=== PATIENT | male | born 1945 | race Caucasian/White ===

== ENCOUNTER 2017-02-18 12:52 | Inpatient (IN) | payer MEDICARE ==
[~2017-02-18] VITALS: Ht 190.5 cm; Wt 95.3 kg
[~2017-02-18 12:52] MED LIST: ACET-1757 PO; ALBU18HF INH; ALLO300T PO; CEFD300C37 PO; CEFU500T50 PO; DILT120C75 PO; DILT240C77 PO; DOXY100T PO; DOXY100T10 PO; FLUT1DIS3 INH; FLUT1DIS5 IH; FURO40TA6 PO; GUAI600T31 PO; IPRA3AMP NPPB; LEVO500T47 PO; LEVO750T26 PO; MONT10TA9 PO; POTA10TA11 PO; PRED20TA PO; PRED5TAB PO; TAMS0.4C2 PO; TIOT18CA INH
[2017-02-18] MEDS ORDERED: SODIUM CHLORIDE 0.9% 1,000ML IVBOLUS ONE ×3 (13:00→15:30)
[2017-02-18] MEDS ORDERED: ACETAMINOPHEN 500 MG TABLET PO ONE (13:00)
[2017-02-18] MEDS ORDERED: SODIUM CHLORIDE FLUSH 10ML SYR IVF ONE (13:00)
[2017-02-18] MEDS ORDERED: MAGNESIUM SULFATE 1 GM/2 ML IVPush ONE (13:00)
[2017-02-18] MEDS ORDERED: FLUT1DIS5 IH (13:19)
[2017-02-18] MEDS ORDERED: TIOT4MIS5 INH (13:22)
[2017-02-18] MEDS ORDERED: ALBUTEROL/IPRATROPIUM 2.5MG/0.5MG, 3 ML ONE ×2 (13:25→13:37)
[2017-02-18] MEDS ORDERED: MAGNESIUM SULFATE PMX 2GM/50ML 50 ML IV ONE (13:30)
[2017-02-18 13:37] LABS: HEMATOCRIT 42.9 % (39.2-51.8); HEMOGLOBIN 14.4 g/dL (13.7-18.0); WHITE BLOOD COUNT 21.7 x10^3/uL (3.4-10)
[2017-02-18 13:50] LABS: ASPARTATE AMINO TRANSFERASE 10 U/L (15-37); BLOOD UREA NITROGEN 12 mg/dL (7-18)
[2017-02-18 13:56] LABS: IS PT STATUS REG ER OR PRE ER? YES
[2017-02-18 13:57] LABS: DIFF TOTAL CELLS COUNTED 100 CELL DIFF
[2017-02-18 14:01] LABS: ANISOCYTOSIS 1+
[2017-02-18 14:02] LABS: VERIFY COUNTS? YES
[2017-02-18 14:17] LABS: RAPID INFLUENZA A Negative (Negative); RAPID INFLUENZA B Negative (Negative)
[2017-02-18] MEDS ORDERED: PIPERACILLIN/TAZO/PMX 3.375GM 50 ML ONE (15:29)
[2017-02-18] MEDS ORDERED: VANCOMYCIN PER PHARMACY MC ONE (15:30)
[2017-02-18] MEDS ORDERED: VANCOMYCIN 1,700 MG in SODIUM CHLORIDE 0.9% 250 ML IV ONE (15:30)
[2017-02-18] MEDS ORDERED: PIPERACILLIN/TAZO/PMX 3.375GM 50 ML IVPB ONE (15:30)
[2017-02-18] MEDS ORDERED: SODIUM CHLORIDE FLUSH 10ML SYR IVF PRN (16:00)
[2017-02-18] MEDS ORDERED: NS + 20MEQ KCL 1,000 ML IV SCH ×2 (16:05→21:00)
[2017-02-18] MEDS: methylPREDNISolone SOD SUCC 125 MG/2 ML IVPush SCH ×2 (16:30→21:48)
[2017-02-18] MEDS ORDERED: LABETALOL 5MG/ML, 20ML IVPush PRN (16:30)
[2017-02-18] MEDS ORDERED: ENALAPRILAT 1.25 MG/ML, 2ML IVPush PRN (16:30)
[2017-02-18] MEDS ORDERED: ACETAMINOPHEN 325 MG TABLET PO PRN (16:30)
[2017-02-18] MEDS ORDERED: HYDROcodone/APAP 5/325 TABLET PO PRN (16:30)
[2017-02-18] MEDS ORDERED: VANCOMYCIN PER PHARMACY MC PRN (17:30)
[2017-02-18] MEDS ORDERED: TEMPLATE NON-FORMULARY MED. (Albuterol Sulfate (Ventolin Hfa) 2 PUFF(S)) INH PRN (17:30)
[2017-02-18] MEDS: ALBUTEROL/IPRATROPIUM 2.5MG/0.5MG, 3 ML NPPB SCH ×2 (17:30→21:30)
[2017-02-18 19:23] VITALS: BP 107/71
[2017-02-18] MEDS: GUAIFENESIN ER 600 MG TABLET PO SCH (21:49)
[2017-02-18] MEDS: TAMSULOSIN 0.4 MG CAP.ER.24H PO SCH (21:49)
[2017-02-18] MEDS: MONTELUKAST 10 MG TABLET PO SCH (21:49)
[2017-02-18] MEDS: PIPERACILLIN/TAZO/PMX 4.5GM 100 ML IV SCH (21:50)
[2017-02-18] MEDS: HEPARIN 5,000 UNITS/ML, 1ML SQ SCH (21:50)
[2017-02-19 01:02] VITALS: BP 126/72
[2017-02-19] MEDS: ALBUTEROL/IPRATROPIUM 2.5MG/0.5MG, 3 ML NPPB SCH ×5 (01:30→15:35)
[2017-02-19] MEDS: methylPREDNISolone SOD SUCC 125 MG/2 ML IVPush SCH ×4 (03:45→23:31)
[2017-02-19] MEDS: PIPERACILLIN/TAZO/PMX 4.5GM 100 ML IV SCH ×4 (03:45→23:31)
[2017-02-19 03:53] VITALS: BP 126/77
[2017-02-19 05:54] LABS: HEMOGLOBIN 13.1 g/dL (13.7-18.0); WHITE BLOOD COUNT 18.1 x10^3/uL (3.4-10)
[2017-02-19] MEDS: HEPARIN 5,000 UNITS/ML, 1ML SQ SCH ×3 (05:56→23:31)
[2017-02-19 06:07] LABS: BLOOD UREA NITROGEN 11 mg/dL (7-18)
[2017-02-19 07:52] VITALS: BP 128/72
[2017-02-19] MEDS: ALLOPURINOL 300 MG TABLET PO SCH (09:00)
[2017-02-19] MEDS: GUAIFENESIN ER 600 MG TABLET PO SCH ×2 (10:06→20:13)
[2017-02-19] MEDS: DILTIAZEM 120 MG CAP.ER.24H PO SCH (10:06)
[2017-02-19] MEDS: VANCOMYCIN 1,700 MG in SODIUM CHLORIDE 0.9% 250 ML IV SCH (14:08)
[2017-02-19 15:37] VITALS: BP 97/58
[2017-02-19] MEDS ORDERED: NS + 20MEQ KCL 1,000 ML IV SCH (16:05)
[2017-02-19] MEDS: DOCUSATE 100 MG CAPSULE PO PRN (17:47)
[2017-02-19] MEDS ORDERED: ALBUTEROL/IPRATROPIUM 2.5MG/0.5MG, 3 ML NPPB SCH (19:00)
[2017-02-19 19:23] VITALS: BP 121/76
[2017-02-19] MEDS: TAMSULOSIN 0.4 MG CAP.ER.24H PO SCH (20:13)
[2017-02-19] MEDS: MONTELUKAST 10 MG TABLET PO SCH (20:13)
[2017-02-20 01:09] VITALS: BP 114/67
[2017-02-20 05:32] LABS: HEMATOCRIT 36.3 % (39.2-51.8); HEMOGLOBIN 12.1 g/dL (13.7-18.0); WHITE BLOOD COUNT 19.2 x10^3/uL (3.4-10)
[2017-02-20 05:42] LABS: BLOOD UREA NITROGEN 15 mg/dL (7-18)
[2017-02-20] MEDS: DOCUSATE 100 MG CAPSULE PO PRN (05:52)
[2017-02-20] MEDS: PIPERACILLIN/TAZO/PMX 4.5GM 100 ML IV SCH ×2 (05:52→11:17)
[2017-02-20 06:39] VITALS: BP 137/79
[2017-02-20] MEDS: ALBUTEROL/IPRATROPIUM 2.5MG/0.5MG, 3 ML NPPB SCH ×4 (07:37→20:00)
[2017-02-20] MEDS: ALLOPURINOL 300 MG TABLET PO SCH (09:00)
[2017-02-20] MEDS: HEPARIN 5,000 UNITS/ML, 1ML SQ SCH ×2 (11:17→18:03)
[2017-02-20] MEDS: GUAIFENESIN ER 600 MG TABLET PO SCH ×2 (11:17→20:28)
[2017-02-20] MEDS: DILTIAZEM 120 MG CAP.ER.24H PO SCH (11:17)
[2017-02-20 12:57] VITALS: BP 116/70
[2017-02-20] MEDS: methylPREDNISolone SOD SUCC 125 MG/2 ML IVPush SCH ×2 (13:20→20:28)
[2017-02-20] MEDS: VANCOMYCIN 1,700 MG in SODIUM CHLORIDE 0.9% 250 ML IV SCH (15:17)
[2017-02-20] MEDS: PIPERACILLIN/TAZO 4.5 GM in DEXTROSE 5% 100 ML IV SCH (18:03)
[2017-02-20] MEDS ORDERED: DOCUSATE 100 MG CAPSULE PO PRN (19:00)
[2017-02-20] MEDS ORDERED: ACETAMINOPHEN 325 MG TABLET PO PRN (19:00)
[2017-02-20 20:12] VITALS: BP 115/67
[2017-02-20] MEDS: TAMSULOSIN 0.4 MG CAP.ER.24H PO SCH (20:28)
[2017-02-20] MEDS: MONTELUKAST 10 MG TABLET PO SCH (20:28)
[2017-02-21] MEDS: HEPARIN 5,000 UNITS/ML, 1ML SQ SCH (00:08)
[2017-02-21] MEDS: PIPERACILLIN/TAZO 4.5 GM in DEXTROSE 5% 100 ML IV SCH ×4 (00:08→20:39)
[2017-02-21 02:00] VITALS: BP 136/76
[2017-02-21] MEDS ORDERED: OXYMETAZOLINE NASAL SPRAY 0.05%, 15ML NAS ONE (04:00)
[2017-02-21] MEDS ORDERED: SODIUM CHLORIDE 0.9% 500 ML IV ONE ×3 (04:15→09:00)
[2017-02-21 04:36] LABS: HEMATOCRIT 35.7 % (39.2-51.8); HEMOGLOBIN 11.9 g/dL (13.7-18.0); WHITE BLOOD COUNT 19.8 x10^3/uL (3.4-10)
[2017-02-21 04:45] LABS: ASPARTATE AMINO TRANSFERASE 22 U/L (15-37); BLOOD UREA NITROGEN 19 mg/dL (7-18)
[2017-02-21] MEDS: methylPREDNISolone SOD SUCC 125 MG/2 ML IVPush SCH ×3 (04:49→20:39)
[2017-02-21] MEDS ORDERED: LIDOCAINE/PF 1%-EPI 1:200K, 30 ML INFIL ONE (05:00)
[2017-02-21] MEDS ORDERED: LIDOCAINE 1%-EPI 1:100K, 20ML INFIL ONE (05:00)
[2017-02-21] MEDS ORDERED: SODIUM CHLORIDE 0.9%, 500ML IVBOLUS ONE (05:00)
[2017-02-21] MEDS ORDERED: LIDOCAINE 0.5%-EPI 1:200K, 50ML INFIL ONE (05:00)
[2017-02-21 06:18] LABS: HEMATOCRIT 30.6 % (39.2-51.8); HEMOGLOBIN 10.2 g/dL (13.7-18.0)
[2017-02-21 06:45] VITALS: BP 92/60
[2017-02-21] MEDS: ALBUTEROL/IPRATROPIUM 2.5MG/0.5MG, 3 ML NPPB SCH ×4 (07:16→19:14)
[2017-02-21 08:10] VITALS: BP 92/56
[2017-02-21] MEDS: DILTIAZEM 120 MG CAP.ER.24H PO SCH (08:18)
[2017-02-21] MEDS: ALLOPURINOL 300 MG TABLET PO SCH (09:00)
[2017-02-21] MEDS: GUAIFENESIN ER 600 MG TABLET PO SCH ×2 (09:00→20:39)
[2017-02-21] MEDS ORDERED: SODIUM CHLORIDE 0.9% 1,000ML IV ONE (09:00)
[2017-02-21 10:28] LABS: HEMATOCRIT 28.9 % (39.2-51.8); HEMOGLOBIN 9.6 g/dL (13.7-18.0)
[2017-02-21 11:24] VITALS: BP 107/65
[2017-02-21 14:42] VITALS: BP 113/70
[2017-02-21] MEDS: OXYMETAZOLINE NASAL SPRAY 0.05%, 15ML NAS PRN (15:30)
[2017-02-21] MEDS: VANCOMYCIN 1,700 MG in SODIUM CHLORIDE 0.9% 250 ML IV SCH (15:31)
[2017-02-21 19:06] VITALS: BP 107/68
[2017-02-21 19:18] LABS: HEMATOCRIT 28.6 % (39.2-51.8); HEMOGLOBIN 9.5 g/dL (13.7-18.0)
[2017-02-21] MEDS ORDERED: ENALAPRILAT 1.25 MG/ML, 2ML IVPush PRN (19:30)
[2017-02-21] MEDS ORDERED: DOCUSATE 100 MG CAPSULE PO PRN (19:30)
[2017-02-21] MEDS ORDERED: ACETAMINOPHEN 325 MG TABLET PO PRN (19:30)
[2017-02-21] MEDS ORDERED: LABETALOL 5MG/ML, 20ML IVPush PRN (19:30)
[2017-02-21] MEDS: TAMSULOSIN 0.4 MG CAP.ER.24H PO SCH (20:39)
[2017-02-21] MEDS: MONTELUKAST 10 MG TABLET PO SCH (20:39)
[2017-02-22] MEDS: PIPERACILLIN/TAZO/PMX 4.5GM 100 ML IV SCH ×4 (01:32→18:30)
[2017-02-22 01:36] VITALS: BP 121/63
[2017-02-22] MEDS: methylPREDNISolone SOD SUCC 125 MG/2 ML IVPush SCH (05:41)
[2017-02-22 05:43] LABS: BLOOD UREA NITROGEN 29 mg/dL (7-18)
[2017-02-22 05:58] LABS: HEMATOCRIT 26.5 % (39.2-51.8); WHITE BLOOD COUNT 15.9 x10^3/uL (3.4-10)
[2017-02-22 06:25] LABS: DIFF TOTAL CELLS COUNTED 100 CELL DIFF
[2017-02-22 06:32] LABS: ANISOCYTOSIS 1+; HYPOCHROMIA 1+; POLYCHROMASIA 1+
[2017-02-22 06:38] LABS: VERIFY COUNTS? YES
[2017-02-22] MEDS: ALBUTEROL/IPRATROPIUM 2.5MG/0.5MG, 3 ML NPPB SCH ×4 (06:51→19:56)
[2017-02-22] MEDS: GUAIFENESIN ER 600 MG TABLET PO SCH ×2 (08:49→21:19)
[2017-02-22] MEDS: DILTIAZEM 120 MG CAP.ER.24H PO SCH (08:49)
[2017-02-22] MEDS: ALLOPURINOL 300 MG TABLET PO SCH (08:49)
[2017-02-22] MEDS: OXYMETAZOLINE NASAL SPRAY 0.05%, 15ML NAS PRN ×2 (08:57→11:18)
[2017-02-22 09:22] VITALS: BP 111/67
[2017-02-22 11:25] VITALS: BP 111/64
[2017-02-22 14:54] VITALS: BP 103/64
[2017-02-22 21:15] VITALS: BP 130/73
[2017-02-22] MEDS: TAMSULOSIN 0.4 MG CAP.ER.24H PO SCH (21:19)
[2017-02-22] MEDS: MONTELUKAST 10 MG TABLET PO SCH (21:19)
[2017-02-23] MEDS: PIPERACILLIN/TAZO/PMX 4.5GM 100 ML IV SCH ×4 (01:08→18:14)
[2017-02-23 01:16] VITALS: BP 106/69
[2017-02-23] MEDS: OXYMETAZOLINE NASAL SPRAY 0.05%, 15ML NAS PRN (03:00)
[2017-02-23 06:00] LABS: HEMATOCRIT 25.3 % (39.2-51.8); HEMOGLOBIN 8.6 g/dL (13.7-18.0); WHITE BLOOD COUNT 18.6 x10^3/uL (3.4-10)
[2017-02-23 06:22] LABS: DIFF TOTAL CELLS COUNTED 100 CELL DIFF
[2017-02-23 06:24] LABS: ANISOCYTOSIS 1+; POLYCHROMASIA 1+; VERIFY COUNTS? YES
[2017-02-23 06:26] LABS: ASPARTATE AMINO TRANSFERASE 11 U/L (15-37); BLOOD UREA NITROGEN 26 mg/dL (7-18); C-REACTIVE PROTEIN, QUANT 0.43 mg/dL (0.02-0.49)
[2017-02-23 06:35] VITALS: BP 137/63
[2017-02-23] MEDS: ALBUTEROL/IPRATROPIUM 2.5MG/0.5MG, 3 ML NPPB SCH ×4 (06:47→19:19)
[2017-02-23] MEDS: ALLOPURINOL 300 MG TABLET PO SCH (08:17)
[2017-02-23] MEDS: GUAIFENESIN ER 600 MG TABLET PO SCH ×2 (08:18→20:18)
[2017-02-23] MEDS: DILTIAZEM 120 MG CAP.ER.24H PO SCH (08:18)
[2017-02-23 13:05] VITALS: BP 89/50
[2017-02-23] MEDS ORDERED: SODIUM CHLORIDE 0.9%, 500ML IVBOLUS ONE (15:30)
[2017-02-23 16:50] VITALS: BP 113/70
[2017-02-23] MEDS: MONTELUKAST 10 MG TABLET PO SCH (20:18)
[2017-02-23] MEDS: TAMSULOSIN 0.4 MG CAP.ER.24H PO SCH (20:18)
[2017-02-23 20:33] VITALS: BP 123/66
[2017-02-24] VITALS (8 sets, daily range): BP systolic 106–144; BP diastolic 50–85
[2017-02-24] MEDS: PIPERACILLIN/TAZO/PMX 4.5GM 100 ML IV SCH ×4 (02:24→22:02)
[2017-02-24 05:47] LABS: HEMATOCRIT 27.4 % (39.2-51.8); HEMOGLOBIN 9.1 g/dL (13.7-18.0); WHITE BLOOD COUNT 19.9 x10^3/uL (3.4-10)
[2017-02-24 05:56] LABS: BLOOD UREA NITROGEN 20 mg/dL (7-18)
[2017-02-24 06:04] LABS: DIFF TOTAL CELLS COUNTED 100 CELL DIFF
[2017-02-24 06:06] LABS: ANISOCYTOSIS 1+; POLYCHROMASIA 1+; VERIFY COUNTS? YES
[2017-02-24] MEDS ORDERED: FERROUS SULFATE 325 MG TABLET PO SCH (08:00)
[2017-02-24] MEDS: ALBUTEROL/IPRATROPIUM 2.5MG/0.5MG, 3 ML NPPB SCH ×4 (08:05→19:42)
[2017-02-24] MEDS: FERROUS SULFATE 325 MG TABLET PO SCH ×2 (08:40→17:35)
[2017-02-24] MEDS: ALLOPURINOL 300 MG TABLET PO SCH (08:40)
[2017-02-24] MEDS: DILTIAZEM 120 MG CAP.ER.24H PO SCH (08:40)
[2017-02-24] MEDS: GUAIFENESIN ER 600 MG TABLET PO SCH ×2 (08:40→22:02)
[2017-02-24 21:06] LABS: ADENOVIRUS PCR Negative (Negative); INFLUENZA A PCR Negative (Negative); INFLUENZA B PCR Negative (Negative); METAPNEUMOVIRUS PCR Negative (Negative); PARAINFLUENZA 1 PCR Negative (Negative); PARAINFLUENZA 2 PCR Negative (Negative); PARAINFLUENZA 3 PCR Negative (Negative); RESP SYNCYTIAL VIRUS A PCR Negative (Negative); RESP SYNCYTIAL VIRUS B PCR Negative (Negative); RHINOVIRUS PCR Negative (Negative)
[2017-02-24] MEDS: MONTELUKAST 10 MG TABLET PO SCH (22:02)
[2017-02-24] MEDS: TAMSULOSIN 0.4 MG CAP.ER.24H PO SCH (22:02)
[2017-02-25 00:54] VITALS: BP 111/65
[2017-02-25] MEDS: PIPERACILLIN/TAZO/PMX 4.5GM 100 ML IV SCH ×4 (04:29→21:53)
[2017-02-25 07:43] VITALS: BP 125/61
[2017-02-25] MEDS: ALBUTEROL/IPRATROPIUM 2.5MG/0.5MG, 3 ML NPPB SCH ×4 (08:30→20:00)
[2017-02-25] MEDS: ALLOPURINOL 300 MG TABLET PO SCH (09:14)
[2017-02-25] MEDS: FERROUS SULFATE 325 MG TABLET PO SCH ×2 (09:15→17:31)
[2017-02-25] MEDS: DILTIAZEM 120 MG CAP.ER.24H PO SCH (09:15)
[2017-02-25] MEDS: GUAIFENESIN ER 600 MG TABLET PO SCH ×2 (09:15→21:52)
[2017-02-25 13:59] VITALS: BP 112/63
[2017-02-25 19:59] VITALS: BP 108/58
[2017-02-25] MEDS: TAMSULOSIN 0.4 MG CAP.ER.24H PO SCH (21:52)
[2017-02-25] MEDS: MONTELUKAST 10 MG TABLET PO SCH (21:52)
[2017-02-26 01:35] VITALS: BP 108/68
[2017-02-26] MEDS: PIPERACILLIN/TAZO/PMX 4.5GM 100 ML IV SCH ×4 (04:01→22:44)
[2017-02-26] MEDS: ALBUTEROL/IPRATROPIUM 2.5MG/0.5MG, 3 ML NPPB SCH ×4 (07:10→19:15)
[2017-02-26] MEDS: DILTIAZEM 120 MG CAP.ER.24H PO SCH (08:14)
[2017-02-26] MEDS: ALLOPURINOL 300 MG TABLET PO SCH (08:14)
[2017-02-26] MEDS: GUAIFENESIN ER 600 MG TABLET PO SCH ×2 (08:14→20:24)
[2017-02-26] MEDS: FERROUS SULFATE 325 MG TABLET PO SCH ×2 (08:15→16:11)
[2017-02-26 09:02] VITALS: BP 118/63
[2017-02-26 14:51] VITALS: BP 131/66
[2017-02-26 20:00] VITALS: BP 129/62
[2017-02-26] MEDS: TAMSULOSIN 0.4 MG CAP.ER.24H PO SCH (20:24)
[2017-02-26] MEDS: MONTELUKAST 10 MG TABLET PO SCH (20:24)
[2017-02-27 00:47] VITALS: BP 136/66
[2017-02-27] MEDS: PIPERACILLIN/TAZO/PMX 4.5GM 100 ML IV SCH ×3 (04:22→16:36)
[2017-02-27] MEDS: ALBUTEROL/IPRATROPIUM 2.5MG/0.5MG, 3 ML NPPB SCH ×4 (07:09→20:20)
[2017-02-27 07:59] VITALS: BP 130/66
[2017-02-27] MEDS: GUAIFENESIN ER 600 MG TABLET PO SCH ×2 (09:44→20:48)
[2017-02-27] MEDS: FERROUS SULFATE 325 MG TABLET PO SCH ×2 (09:44→17:37)
[2017-02-27] MEDS: ALLOPURINOL 300 MG TABLET PO SCH (09:45)
[2017-02-27] MEDS: DILTIAZEM 120 MG CAP.ER.24H PO SCH (09:45)
[2017-02-27 13:59] VITALS: BP 119/90
[2017-02-27 19:48] VITALS: BP 101/60
[2017-02-27] MEDS: MONTELUKAST 10 MG TABLET PO SCH (20:47)
[2017-02-27] MEDS: AMOXICILLIN/CLAV 500-125MG TABLET PO SCH (20:47)
[2017-02-27] MEDS: LINEZOLID 600 MG TABLET PO SCH (20:47)
[2017-02-27] MEDS: TAMSULOSIN 0.4 MG CAP.ER.24H PO SCH (20:47)
[2017-02-28 01:12] VITALS: BP 130/62
[2017-02-28] MEDS: AMOXICILLIN/CLAV 500-125MG TABLET PO SCH ×2 (04:21→11:37)
[2017-02-28] MEDS: ALBUTEROL/IPRATROPIUM 2.5MG/0.5MG, 3 ML NPPB SCH ×2 (07:40→11:57)
[2017-02-28 07:41] VITALS: BP 146/73
[2017-02-28] MEDS: ALLOPURINOL 300 MG TABLET PO SCH (08:58)
[2017-02-28] MEDS: FERROUS SULFATE 325 MG TABLET PO SCH (08:58)
[2017-02-28] MEDS: LINEZOLID 600 MG TABLET PO SCH (08:58)
[2017-02-28] MEDS: DILTIAZEM 120 MG CAP.ER.24H PO SCH (08:58)
[2017-02-28] MEDS: GUAIFENESIN ER 600 MG TABLET PO SCH (08:58)
[2017-02-28 12:06] VITALS: BP 120/74
[2017-02-28] MEDS ORDERED: LINE600T7 PO (13:50)
[2017-02-28] MEDS ORDERED: PRED20TA PO (13:50)
[2017-02-28] MEDS ORDERED: AMOX1TAB61 PO (13:50)
== END 2017-02-28 16:27 | disposition home or self-care (01) | DRG 871 ==
LOC: ED 13:43 → EDIP 15:40 → 4EST 17:43
PROVIDERS: ADMIT Family Medicine; ATTEND Family Medicine
DX: A41.9 Sepsis, unspecified organism (principal); J15.211 Pneumonia due to Methicillin susceptible Staphylococcus aureus; I27.29 Other secondary pulmonary hypertension; D62 Acute posthemorrhagic anemia; I27.81 Cor pulmonale (chronic); I07.1 Rheumatic tricuspid insufficiency; J44.0 Chronic obstructive pulmonary disease with (acute) lower respiratory infection; J44.1 Chronic obstructive pulmonary disease with (acute) exacerbation; R04.2 Hemoptysis; M10.9 Gout, unspecified; N40.0 Benign prostatic hyperplasia without lower urinary tract symptoms; R65.20 Severe sepsis without septic shock; Y95 Nosocomial condition; R09.02 Hypoxemia; I10 Essential (primary) hypertension; R06.89 Other abnormalities of breathing; R04.0 Epistaxis; Z66 Do not resuscitate; Z51.5 Encounter for palliative care; Z82.49 Family history of ischemic heart disease and other diseases of the circulatory system; Z86.14 Personal history of Methicillin resistant Staphylococcus aureus infection; Z87.01 Personal history of pneumonia (recurrent); Z87.891 Personal history of nicotine dependence; Z99.81 Dependence on supplemental oxygen; Z88.5 Allergy status to narcotic agent
CPT/HCPCS: 36415; 71010; 71020; 74230; 80048; 80053; 80202; 83605; 84145; 84484; 85014; 85018; 85025; 85610; 85651; 85730; 86140; 86738; 87040; 87070; 87081; 87205; 87400; 87633; 93005; 94640; 94667; 96361; 96365; 96368; J1644; J2543; J3370; J3480; J3490; J7620; J2930; J3475; J7030; J7040; J7050; J7512